=== PATIENT | female | born 1975 | race Hispanic/Latino ===

== ENCOUNTER 2016-09-01 06:03 | Emergency (ER) | payer OTHER ==
[2016-09-01 06:03] VITALS: BMI 25.0
[2016-09-01 06:19] VITALS: RESP 16
--- NOTE | 2016-09-01 07:21 | ED PDOC ---
HPI: General Adult Time Seen by Provider: 09/01/16 07:17 Chief Complaint (Nursing): GI Problem Chief Complaint (Provider): nausea History Per: Patient History/Exam Limitations: no limitations Additional Complaint(s): 41yo female comes to the ED complaining of nausea for 6 days. She states she was diagnosed with influenza 7 days ago and since that time she has had body aches, malaise, some abdominal "churning". States she has decreased appetite but is not vomiting. No fever, abdominal pain, constipation/diarrhea, dysuria, shortness of breath, chest pain. Patient's daughter was sick with flu recently. She reports that she saw her PMD and had a negative CXR 2 days ago. States she was given Rx Zofran several days ago but is has not helped. Past Medical History Reviewed: Historical Data, Nursing Documentation, Vital Signs Vital Signs: Last Vital Signs Temp 97.9 F 09/01/16 09:29 Pulse 88 09/01/16 09:29 Resp 16 09/01/16 06:16 BP 117/72 09/01/16 09:29 Pulse Ox 98 09/01/16 09:29 - Medical History PMH: Fractures Other PMH: factor V blood clotting disorder - Surgical History Surgical History: Tonsillectomy - Family History Family History: States: Unknown Family Hx - Social History Drugs: Denies - Immunization History Hx Tetanus Toxoid Vaccination: Yes Hx Influenza Vaccination: Yes Hx Pneumococcal Vaccination: No - Home Medications Home Medications: Ambulatory Orders Medication Instructions Recorded Metoclopramide HCl [Reglan] 5 mg PO Q8 #20 tablet 09/01/16 - Allergies Allergies/Adverse Reactions: Allergies Allergy/AdvReac Type Severity Reaction Status Date / Time Sulfa (Sulfonamide Allergy RASH Verified 09/01/16 07:31 Antibiotics) Review of Systems ROS Statement: Except As Marked, All Systems Reviewed And Found Negative Constitutional: Negative for: Fever Eyes: Negative for: Pain ENT: Negative for: Ear Pain, Ear Discharge, Nose Pain, Nose Congestion, Mouth Pain Cardiovascular: Negative for: Chest Pain, Palpitations, Orthopnea, Paroxysmal Noc. Dyspnea, Edema, Light Headedness Respiratory: Negative for: Cough, Shortness of Breath, SOB with Exertion, Wheezing Gastrointestinal: Positive for: Nausea. Negative for: Vomiting, Abdominal Pain , Diarrhea, Constipation Genitourinary Female: Negative for: Dysuria Skin: Negative for: Rash Physical Exam - Reviewed Nursing Documentation Reviewed: Yes Vital Signs Reviewed: Yes - Physical Exam Appears: Positive for: Well, Non-toxic, No Acute Distress Head Exam: Positive for: ATRAUMATIC, NORMAL INSPECTION, NORMOCEPHALIC Skin: Positive for: Warm, Dry Eye Exam: Positive for: EOMI, PERRL ENT: Positive for: Normal ENT Inspection. Negative for: Pharyngeal Erythema, Tonsillar Exudate Neck: Positive for: Normal, Supple Cardiovascular/Chest: Positive for: Regular Rate, Rhythm Respiratory: Positive for: Normal Breath Sounds. Negative for: Rales, Rhonchi, Wheezing Gastrointestinal/Abdominal: Positive for: Normal Exam, Soft. Negative for: Tenderness, Mass, Distended Back: Positive for: Normal Inspection Extremity: Positive for: Normal ROM Neurologic/Psych: Positive for: Alert, front end web designer II-XII, Oriented, Gait (normal gait) - Laboratory Results Result Diagrams: 09/01/16 07:45 09/01/16 07:45 - ECG ECG: Positive for: Interpreted By Me, Viewed By Me ECG Rhythm: Positive for: Sinus Rhythm. Negative for: ST/T Changes Rate: 75 O2 Sat by Pulse Oximetry: 100 (RA) Pulse Ox Interpretation: Normal Medical Decision Making Medical Decision Makin Differential includes electrolyte abnormality, dehydration, viral gastritis, Plan: -EKG -Labs -reglan -toradol -IV fluids -reassess [id number] Labs including lipase grossly normal. EKG shows NSR at 75bpm with no ST changes and normal intervals. negative. IVF infusing. P:UA, Poc challenge and reeval On reevaluation, patient's ua is negative and she is tolerating po. She reports that she wants to go home and will follow-up with PMD and return with any worsening symptoms. Disposition - Clinical Impression Clinical Impression: Nausea - Disposition Referrals: Ronald Mccall MD [Primary Care Provider] - Disposition: Routine/Home Disposition Time: 09:13 Condition: GOOD Additional Instructions: Follow up with PMD within 2 days. Return to ED if condition worsens. Increase fluids. Prescriptions: Metoclopramide HCl [Reglan] 5 mg PO Q8 #20 tablet Additional Comments - Additional Comments Additional Comments: Scribe Attestation: Documented by Robert Degroot acting as a scribe for Kecia Vieira MD. MD Scribe Attestation: All medical record entries made by the Dez were at my direction and personally dictated by me. I have reviewed the chart and agree that the record accurately reflects my personal performance of the history, physical exam, medical decision making, and the department course for this patient. I have also personally directed, reviewed, and agree with the discharge instructions and disposition.
[2016-09-01 08:17] LABS: BASO % 0.2 % (0.0-2.0); EOS # 0.1 K/uL (0.0-0.7); EOS % 0.9 % (0.0-4.0); HEMATOCRIT 39.7 % (34.0-47.0); LYMPH # 1.3 K/uL (1.0-4.3); LYMPH % 18.2 % (20.0-40.0); MEAN CELL VOLUME 88.7 fl (81.0-99.0); MEAN CORPUSCULAR HEMOGLOBIN 30.3 pg (27.0-31.0); MEAN CORPUSCULAR HGB CONC 34.2 g/dL (33.0-37.0); MEAN PLATELET VOLUME 8.8 fl (7.2-11.7); MONO # 0.3 K/uL (0.0-0.8); MONO % 4.9 % (0.0-10.0); NEUT # 5.3 K/uL (1.8-7.0); NEUT % 75.8 % (50.0-75.0); RED CELL DISTRIBUTION WIDTH 12.3 % (11.5-14.5)
[2016-09-01 08:33] LABS: ALB/GLOB RATIO 1.3 (1.0-2.1); ALKALINE PHOSPHATASE 45 U/L (38-126); ALT/SGPT 23 U/L (9-52); AST/SGOT 33 U/L (14-36); BILIRUBIN,TOTAL 0.8 mg/dl (0.2-1.3); BLOOD UREA NITROGEN 12 mg/dl (7-17); CALCIUM 9.1 mg/dL (8.4-10.2); CARBON DIOXIDE 27 mmol/L (22-30); CHLORIDE 103 mmol/L (98-107); GFR AFRICAN-AMERICAN > 60; GLUCOSE,RANDOM 99 mg/dL (65-105); LIPASE 63 U/L (23-300); MAGNESIUM 2.2 MG/DL (1.6-2.3); PHOSPHOROUS 4.1 mg/dl (2.5-4.5); POTASSIUM 4.3 MMOL/L (3.6-5.0); SODIUM 143 mmol/l (132-148); TOTAL PROTEIN 7.5 G/DL (6.3-8.2)
[2016-09-01 08:41] LABS: RBC URINE 2 /hpf (0-3); URINE BACTERIA RARE (<OCC); URINE BILIRUBIN NEGATIVE (NEGATIVE); URINE BLOOD NEGATIVE (NEGATIVE); URINE COLOR YELLOW (YELLOW); URINE GLUCOSE (UA) NEG (Normal); URINE KETONE NEGATIVE (NEGATIVE); URINE LEUKOCYTE ESTERASE NEG Leu/uL (Negative); URINE PROTEIN NEGATIVE (NEGATIVE); URINE UROBILINOGEN 0.2-1.0 mg/dL (0.2-1.0); WBC URINE 1 /hpf (0-5)
[2016-09-01 09:30] VITALS: BP 117/72; TEMP 97.9
[2016-09-01 11:39] VITALS: PULSE 75; O2SAT 100
--- NOTE | 2016-09-01 12:20 | CARD ---
APPROVED REPORT EKG Measurement Heart [id number] ID [id number] <Conclusion> Normal sinus rhythm Low voltage QRS Borderline ECG
== END 2016-09-01 09:30 | disposition home or self-care (01) ==
LOC: H.ER 06:03
DX: R11.0 Nausea (principal); R10.9 Unspecified abdominal pain